=== PATIENT | male | born 1995 | race Caucasian/White ===

== ENCOUNTER 2020-11-06 09:24 | Emergency (ER) | payer BC ==
[~2020-11-06] VITALS: Ht 180.3 cm; Wt 75.0 kg
[~2020-11-06 09:24] MED LIST: MOBIC 7.5MG7.5 MG PO; NASONEX SPRAY17 GM NS
[2020-11-06 10:47] LABS: BASO % 0.4 % (0.0-2.0); EOS # 0.1 (0.0-0.7); EOS % 0.8 % (0-4.0); GRAN # 7.5 (1.4-6.5); GRAN % 77.1 % (42.2-75.2); HEMATOCRIT 42.3 % (42.0-52.0); HEMOGLOBIN 15.1 g/dl (13.5-18.0); LYMPH # 1.3 (1.2-3.4); LYMPH % 13.3 % (20.0-51.0); MEAN CELL VOLUME 89 fl (80.0-100.0); MEAN CORPUSCULAR HEMOGLOBIN 32 pg (27.0-31.0); MEAN CORPUSCULAR HGB CONC 36 g/dl (33.0-37.0); MONO # 0.8 (0.1-0.6); MONO % 7.8 % (1.7-9.3); PLATELET COUNT 198 K/mm3 (130-400); RED BLOOD COUNT 4.76 M/mm3 (4.20-5.60); REDCELL DISTRIBUTION WIDTH-CV 11.7 % (11.5-14.5)
[2020-11-06 11:11] LABS: ALBUMIN 4.5 gm/dL (3.5-5.0); BILIRUBIN,TOTAL 0.6 mg/dL (0.2-1.2); CALCIUM 8.9 mg/dL (8.4-10.2); CREATININE, serum 0.91 mg/dL (0.72-1.25); POTASSIUM 3.9 mmol/L (3.5-4.5); TOTAL PROTEIN 6.9 gm/dL (6.2-8.1)
[2020-11-06 12:04] VITALS: BP 114/71; PULSE 75
== END 2020-11-06 12:05 | disposition home or self-care (01) ==
LOC: COL.ER 09:24
PROVIDERS: Personal Emergency Response Attendant
DX: R55 Syncope and collapse (principal)